=== PATIENT | male | born 1975 | race Caucasian/White ===

== ENCOUNTER 2019-05-18 18:35 | Emergency (ER) | payer MEDICAID ==
[~2019-05-18] VITALS: Ht 180.3 cm; Wt 62.6 kg
[2019-05-18 20:46] VITALS: BP 119/64
[2019-05-18] MEDS ORDERED: PROC-8 PO (21:44)
== END 2019-05-18 22:14 | disposition home or self-care (01) ==
LOC: ER 18:36
DX: R25.1 Tremor, unspecified (principal); F41.9 Anxiety disorder, unspecified; F43.10 Post-traumatic stress disorder, unspecified; Z79.899 Other long term (current) drug therapy; Z87.19 Personal history of other diseases of the digestive system
CPT/HCPCS: 99282

== ENCOUNTER 2023-08-15 11:52 | Emergency (ER) | payer MEDICAID ==
[~2023-08-15 11:52] MED LIST: PROC-8 PO
== END 2023-08-15 13:49 | disposition left against medical advice (07) ==
LOC: ER 11:53
DX: J02.9 Acute pharyngitis, unspecified (principal); Z53.21 Procedure and treatment not carried out due to patient leaving prior to being seen by health care provider